=== PATIENT | female | born 1955 | race Caucasian/White ===

== ENCOUNTER 2017-02-23 11:53 | Emergency (ER) | payer OTHER ==
[~2017-02-23] VITALS: Wt 80.3 kg
[2017-02-23] MEDS ORDERED: IBUPROFEN 600 MG TAB PO ONE (12:30)
--- NOTE | 2017-02-23 13:04 | RADRPT ---
PROCEDURE: XR Knee. CLINICAL INDICATION: Pain TECHNIQUE: AP, lateral and oblique view of the left knee were obtained. The images reviewed on a PACS workstation. COMPARISON: None. FINDINGS: Three views of the left knee demonstrate no displaced fracture. No gross malalignment is seen. The re is mild degenerate narrowing of the medial joint compartment and patellofemoral joint.. No knee j oint effusion is seen.. Bones are mildly osteopenic. Soft tissues are unremarkable. IMPRESSION: No acute fracture dislocation Mild degenerative change in the medial joint compartment and patellofemoral joint RPTAT: HH .Ananda Torres MD, MD Date Time Electronically viewed and signed by .Ananda Torres MD, on 02/23/2017 13:03 .W/
--- NOTE | 2017-02-23 13:18 | RADRPT ---
PROCEDURE: XR Lumbar Spine. CLINICAL INDICATION: Low back pain. TECHNIQUE: 4 views of the lumbar spine are available for review COMPARISON: None available FINDINGS: The lumbar vertebral bodies are preserved in height. Trace grade 1 retrolisthesis L3-4. Osteopenia. Lower lumbar facet arthropathy. IMPRESSION: Trace grade 1 retrolisthesis L3-4. Osteopenia. Lower lumbar facet arthropathy. RPTAT: AA .Bruce Hernandez MD, MD Date Time Electronically viewed and signed by .Bruce Hernandez MD, on 02/23/2017 13:18 .T/
[2017-02-23] MEDS ORDERED: IBUP-1542 PO (13:31)
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
== END 2017-02-23 13:44 | disposition home or self-care (01) ==
LOC: FTE 11:53
DX: S80.02XA Contusion of left knee, initial encounter (principal); M43.16 Spondylolisthesis, lumbar region; S39.012A Strain of muscle, fascia and tendon of lower back, initial encounter; V49.50XA Passenger injured in collision with unspecified motor vehicles in traffic accident, initial encounter
CPT/HCPCS: 72100; 73562